=== PATIENT | male | born 2000 | race Caucasian/White ===

== ENCOUNTER 2024-06-23 22:16 | Emergency (ER) | payer SELFPAY ==
[2024-06-23 22:17] VITALS: BP 160/85; PULSE 108; RESP 16; TEMP 36.2; O2SAT 100; BMI 30.4
--- NOTE | 2024-06-23 22:34 | EKG12_ITS ---
Test Reason : DYSRHYTHMIA Blood Pressure : */* mmHG Vent. Rate : 77 BPM Atrial Rate : 77 BPM P-R Int : 152 ms QRS Dur : 100 ms QT Int : 374 ms P-R-T Axes : 48 -11 21 degrees QTcB Int : 423 ms Normal sinus rhythm with sinus arrhythmia Normal ECG Confirmed by MATEUSZ RODRIGUEZ, MIRIAM ([id number]), design editor ARCHANA FOSTER ([id number]) on 06/24/2024 11:01:44 AM Referred By: Confirmed By: MIRIAM CHILD MD
--- NOTE | 2024-06-23 22:51 | EX.ED.DYSGE1 ---
HPI History of Present Illness Chief Complaint: Syncope Informant: patient and friend Narrative Narrative: 23-year-old presents for 2 different reasons. He cut his right finger on accident at work earlier today. 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 He bandaged it tightly because of the bleeding. Tonight, he was changing the bandage and after taking it off and looking at the wound, he became lightheaded and then passed out. He fell backward and bumped the back of his head on a nearby door. He denies any prodromal symptoms other than lightheadedness; no chest discomfort, dyspnea, focal neurologic deficit or headache. He states he woke up sweaty according to his girlfriend but feels fine now. He presents because he has never had this happen before. His last tetanus was between 5 and 10 years ago, and he did not present for care for the laceration to his finger before now. [facility] Medical History (Updated 06/23/24 @ 22:[address] Temo Reed MD) PTSD (post-traumatic stress disorder) Hypertension Allergy/AdvReac Type Severity Reaction Status Date / Time Penicillins Allergy Mild Hives Verified 06/23/24 22:17 ROS ROS ED Constitutional Constitutional ED: Denies chills or fever(s) Eyes Eyes: Denies change in vision or diplopia ENT ENT ED: Denies rhinorrhea or sore throat Cardiovascular Cardiovascular: Reports as per HPI and syncope; Denies chest pain or palpitations Respiratory/Chest Respiratory/Chest: Denies cough or dyspnea Gastrointestinal Gastrointestinal: Denies abdominal pain, diarrhea, nausea or vomiting Genitourinary Genitourinary ED: Denies dysuria or hematuria Musculoskeletal Musculoskeletal: Denies back pain or neck pain Integumentary Reports laceration; Denies abscess or rash Neurologic Neurologic: Denies headache(s), paresthesias or weakness EXAM Physical Exam Const Vital Signs: 06/23/24 22:17 06/23/24 22:51 Temperature 97.2 F L Temperature Source Temporal Pulse Rate 108 H Respiratory Rate 16 Respiratory Effort Normal Respiratory Pattern Normal Blood Pressure 160/85 H Blood Pressure Mean 110 Pulse Ox 100 Oxygen Delivery Method Room Air Positive well nourished and well developed General Appearance ED: well developed and NAD HEENT Reports moist mucous membranes normocephalic and atraumatic Eyes PERRL and EOMs intact bilaterally Neck full ROM and supple Resp normal respiratory effort and clear to auscultation bilaterally Cardio regular rate, regular rhythm and no murmurs Rate: Negative for tachycardic GI non-tender and non-distended Auscultation: normoactive bowel sounds Palpation: soft Back/Spine no CVA tenderness General Back: other FROM Extremity normal to inspection Extremity Narrative: Small shallow partial-thickness linear clean laceration at the tip of the right index finger General Extremety ED: Negative for edema, pulses abnormal or tenderness General Extremity: Negative for edema or pulses abnormal Neuro oriented x3, CN's II-XII intact bilaterally, no sensory deficits noted and gait normal Neuro Narrative: GCS 15 Sensorium / Orientation: awake and alert Motor Exam: strength 5/5 throughout Psych mental status grossly normal Skin no rashes or lesions noted Skin Narrative: 0.5 cm partial-thickness linear clean appearing laceration just distal to the edge of the nail of the right index fingertip. Minor oozing of blood easily controllable with pressure. MDM MDM MDM Narrative Medical decision making narrative: EKG was obtained, on my interpretation it is normal. On the monitor he has a sinus arrhythmia with no ectopy. His vital signs are otherwise normal, a little hypertensive. I think this was a vagal phenomenon given the context. Given the lack of any prodromal symptoms or hypoxemia I do not think he needs further emergent workup other than the EKG that we did. He is ambulatory without any symptoms, therefore he is by definition not orthostatic. With regards to the laceration, I do not think it needs to be sutured and he is in agreement. Nursing cleansed and dressed it, we discussed self-care at home, and I do not think he needs a tetanus update for this [id number] tetanus wound. Rhythm Strip Rhythm Strip: Sinus Rhythm (sinus arrhythmia) Rate: 80 Ectopy: None EKG Initial EKG: Attestation: I personally reviewed and interpreted this EKG as follows: Interpretation: No Acute Injury Pattern and Sinus Arrythmia Comments: Nml axis & intervals; nml EKG Prior EKG tracings: not available for review Prior: No Prior Discharge Plan Triage Chief Complaint: Syncope ED Provider: Temo Reed Dx/Rx/DC Orders Clinical Impression: Laceration of right index finger w/o foreign body w/o damage to nail, Syncope, vasovagal Instructions: ED Laceration Superficial No Stitch, ED Fainting, Vagal Reaction Stand Alone Forms: Work Status Form Primary Care Provider: Care Physician,No Primary Referrals: Corporate,Care [Group of Physicians] - As Needed (for laceration) Care Physician,No Primary [Primary Care Provider] - Print Language: Albanian Disposition Disposition: Home, Self Care
[2024-06-23 23:14] VITALS: BP 115/72; PULSE 66; RESP 16; TEMP 36.9; O2SAT 100
== END 2024-06-23 23:14 | disposition home or self-care (01) ==
PROVIDERS: Emergency Provider Emergency Medicine; Visit Provider Emergency Medicine
DX: R55 Syncope and collapse (principal); S61.210A Laceration without foreign body of right index finger without damage to nail, initial encounter; W26.8XXA Contact with other sharp object(s), not elsewhere classified, initial encounter; Y93.89 Activity, other specified; Y92.89 Other specified places as the place of occurrence of the external cause
CPT/HCPCS: 93005; 99284; A4216